=== PATIENT | female | born 1985 | race Caucasian/White ===

== ENCOUNTER 2017-03-24 21:24 | Emergency (ER) | payer OTHER ==
[~2017-03-24 21:24] MED LIST: DALVANCE500 MG IV; MACROBID 100 M100 MG PO; NORCO 5-325 TA1 EACH PO
[2017-03-24 22:26] LABS: HEMOGLOBIN 9.8 gm/dl (12.3-15.3); RED BLOOD COUNT 3.77 M/UL (4.00-5.10); WHITE BLOOD COUNT 8.7 K/UL (4.5-11.0)
[2017-03-24 22:43] LABS: BUN/CREATININE RATIO 25 (0-10)
[2017-05-11] MEDS ORDERED: SUBOXONE 8 MG-1 EACH PO (23:36)
[2017-05-14] MEDS ORDERED: FLAGYL500 MG PO (12:11)
[2017-05-14] MEDS ORDERED: BACTRIM DS TAB1 EACH PO (12:26)
== END 2017-03-25 04:50 | disposition home or self-care (01) ==
LOC: ER1 21:24
PROVIDERS: Student in an Organized Health Care Education/Training Program
DX: N12 Tubulo-interstitial nephritis, not specified as acute or chronic (principal); R11.2 Nausea with vomiting, unspecified; R00.0 Tachycardia, unspecified; Z86.19 Personal history of other infectious and parasitic diseases; F17.200 Nicotine dependence, unspecified, uncomplicated; Z88.0 Allergy status to penicillin
CPT/HCPCS: 36415; 71010; 80053; 81001; 83605; 83690; 85025; 87040; 87077; 87086; 87186; 96361; 96365; 96375; 99284; J0696; J1885; J2270; J2405; J7050

== ENCOUNTER → 2017-03-31 | Outpatient (CLI) | payer OTHER ==
[~2017-03-31] MED LIST changes: +BACTRIM DS TAB1 EACH PO; +FLAGYL500 MG PO; +SUBOXONE 8 MG-1 EACH PO
== END ==
LOC: RAD 16:36
DX: M54.5 Low back pain (principal); M54.6 Pain in thoracic spine; M25.541 Pain in joints of right hand; M25.542 Pain in joints of left hand; R10.9 Unspecified abdominal pain; M47.892 Other spondylosis, cervical region; M47.894 Other spondylosis, thoracic region
CPT/HCPCS: 72050; 72072; 72110; 73130; 74000

== ENCOUNTER → 2021-03-05 | Outpatient (CLI) | payer OTHER ==
[~2021-03-05] MED LIST changes: +CEFUROXIME500 MG PO; +FEOSOL325 MG PO; +FLOMAX 0.4 MG0.4 MG PO; +IBU600 MG PO; +KEFLEX CAP 500500 MG PO; +KEFLEX500 MG PO; +NAPROSYN500 MG PO; +ROCEPHIN 2 GM AD2 GM IM; +SEROQUEL100 MG PO; +VIBRAMYCIN100 MG PO; +ZOFRAN4 MG PO
[2021-03-05 15:14] LABS: RED BLOOD COUNT 4.56 M/UL (4.00-5.10); WHITE BLOOD COUNT 5.7 K/UL (4.5-11.0)
[2021-03-05 15:35] LABS: BUN/CREATININE RATIO 20 (0-10)
[2021-03-06 06:12] LABS: HBSAG SCREEN Negative (Negative); HEP A AB, IGM Negative (Negative); HEP B CORE AB, IGM Negative (Negative); HEP C VIRUS AB >11.0 (0.0-0.9)
[2021-03-06 07:12] LABS: HIV SCREEN 4TH GENERATION WRFX Non Reactive (Non Reactive)
[2021-03-06 19:09] LABS: HCV LOG10 5.324 (.); HEPATITIS C QUANTITATION 211000 IU/mL (.)
== END ==
LOC: LAB 14:40
DX: D50.9 Iron deficiency anemia, unspecified (principal); F11.20 Opioid dependence, uncomplicated; F31.9 Bipolar disorder, unspecified
CPT/HCPCS: 36415; 80053; 80074; 82728; 83540; 83550; 85027; 87389; 87522